=== PATIENT | female | born 1945 | race Caucasian/White ===

== ENCOUNTER 2024-07-04 17:13 | Emergency (ER) | payer MEDICARE ==
[2024-07-04] MEDS ORDERED: Lidocaine 1%/Epinephrine 1:100K 10 ML VIAL ONE (17:40)
[2024-07-04] MEDS ORDERED: Bacitracin 1 PK ONE (18:13)
== END 2024-07-04 18:20 | disposition home or self-care (01) ==
LOC: BURERS 17:13
DX: S51.812A Laceration without foreign body of left forearm, initial encounter (principal); I10 Essential (primary) hypertension; W26.8XXA Contact with other sharp object(s), not elsewhere classified, initial encounter; Y92.009 Unspecified place in unspecified non-institutional (private) residence as the place of occurrence of the external cause
CPT/HCPCS: 12004; 99282